=== PATIENT | female | born 1965 ===

== ENCOUNTER 2025-06-03 18:30 | Emergency (ER) | payer MEDICARE, MEDICAID, SELFPAY ==
--- NOTE | ~2025-06-03 | CT_ITS ---
CLINICAL HISTORY: Bilateral LQ Tenderness Pain CT abdomen and pelvis with contrast Comparison: None provided Findings: Minor atelectasis at the lung bases. Large hiatal hernia. Cholecystectomy. Pneumobilia. Subcapsular 11 mm cyst segment 6 liver. Abdominal solid organs are otherwise unremarkable. No urolithiasis. No bowel obstruction, pneumoperitoneum, or pneumatosis. Moderate stool. Mesenteric vessels patent. Normal appendix. Uterus and ovaries unremarkable. No ascites or hernia. The bones are intact. IMPRESSION: 1. Moderate stool without bowel obstruction. 2. Pneumobilia. Correlate with history of sphincterotomy. 3. Additional findings as above. This document has been electronically signed by: Joelle León MD on 06/04/2025 00:19:42
[2025-06-03 18:48] VITALS: BP 171/81; PULSE 81; RESP 16; TEMP 36.1; O2SAT 99; BMI 32.0
[2025-06-03 19:35] LABS: MANUAL DIFF FLAG NO
[2025-06-03 19:37] LABS: Hematocrit 35.1 % (37.0-47.0); Hemoglobin 11.5 g/dl (12.0-16.0); Imm Gran Abs Auto 0.01 X10*3/uL (0.00-0.03); Imm Gran Pct Auto 0.1 % (0.0-0.4); Lymphocytes Absolute Auto 2.0 X10*3/uL (1.2-4.9); Mean Corpuscular HGB Conc 32.8 g/dl (31.0-35.0); Mean Corpuscular Hemoglobin 29.0 pg (27.0-33.0); Mean Corpuscular Volume 88.6 fL (80.0-98.0); NRBC Abs Auto 0.000 X10*3/uL (0.0-0.012); NRBC Pct Auto 0.0 /100WBC (0.0-0.2); Platelet Count 231 X10*3/uL (160-400); Red Blood Count 3.96 X10*6/uL (4.20-5.50); White Blood Count 7.3 X10*3/uL (4.8-10.8)
[2025-06-03 19:39] LABS: Appearance Urine Clear; Glucose Urine UA Negative (Negative); PH 6.5 (5.0-9.0); Specific Gravity - Urine 1.025 (1.005-1.025); UMIC TRIGGER UACC YES
[2025-06-03 19:47] LABS: UACC Culture Trigger YES
[2025-06-03 19:57] LABS: Anion Gap 14 (12-20); Blood Urea Nitrogen 15 mg/dL (9-16); Calcium 8.5 mg/dL (8.4-10.2); Carbon Dioxide 21 mmol/L (22-29); Chloride 110 mmol/L (96-108); Creatinine Clr Calc Pharmacy 72.9; Estimated Glomerular Filt Rate > 60; Potassium 3.8 mmol/L (3.3-5.1); Sodium 141 mmol/L (135-145)
--- OUTSIDE RECORDS SUMMARY | 2025-06-03 19:58 | XMS_ITS ---
Author Organization [facility] Address [address] [place] [address] Care Team Providers Care Student Assistance Counselor Name Role Phone Domonique Briceño PA-C Primary Care Provider [phone] [id number] Program Status:Enrolled (Active) Start date:10/02/2022 Enrollment date:10/02/2022 Case Team Name Relationship Phone Lacey Peter LPN(Responsible Staff) [phone] Continued Care and Services Coordination
--- OUTSIDE RECORDS SUMMARY | 2025-06-03 19:58 | XMS_ITS | Encounter Summary ---
Author Organization [facility] Address [address] [place] [address] Care Team Providers Care [place] Name Role Phone Domonique Briceño PA-C Primary Care Provider [phone] Encounter Details Date Type Department Care Team (Late st Contact Info) Description 01/03/2024 Interim Notes Formerly [facility] [address] [place] [phone] Kelsie Guardado, Front Office [address], [place] [id number] Social History Tobacco Use Types Packs/Day Years Used Date Smoking Tobacco: Every Day Cigarettes Smokeless Tobacco: Never Alcohol Use Standard Drinks/Week Comments Not Currently 0 (1 standard drink = 0.6 oz pur e alcohol) occasionally Social Connections Answer Date Recorded Connectedness 2 11/03/2023 Financial Resource Strain Answer Date R ecorded Financial Resource Strain 2 2023 Stress Answer Date Recorded Stress 2 11/03/2023 Physical Activity Answer Date Recorded Physical Activity 0 04/08/2019 Food Insecurity Answer Date Recorded Food 2 11/03/2023 Transportation Needs Answer Date Record ed Transportation 1 11/03/2023 Housing Stability Answer Date Recorded Housing 2 11/03/2023 Safety and Environment Answer Date Marcelo rded Safety 0 04/08/2019 Utilities Answer Date Recorded Utilities 2 11/03/2023 Employment Answer Date Recorded Stress 0 11/03/2023 Comments No Sex and Gender Information Value Date Recorded Sex Assigned at Female 05/27/2017 10:07 AM PDT Legal Sex Female 11:36 AM PDT Gender Identity Female 05/27/2017 10:07 AM PDT Sexual Orientation Straight 05/27/2017 10 :07 AM PDT COVID-19 Exposure Response Date Recorded In the last 10 days, have yo u been in contact with someone who was confirmed or suspected to have Coronavirus/COVID-19? Unable to assess 01/05/2024 7:53 AM EDT documented as of this encounter Plan of Treatment Not on file documented as of this encounter Goals Goal Patient Goal Type Associated Problems Recent Progress Patient-Stated? Author Remain at or Below Target Blood Pressure General On track(10/02/19 23 2:39 PM PST) Lacey Lang LPN Note: 130/80 documented as of this encounter Visit Diagnoses Not on filedocumented in this encounter Additional Health Concerns Assessment Noted Time PHQ-9 Depression Total Score: 24 024 1:00 PM PDT documented as of this encounter Care Teams [place] Relationship Specialty Start Date End Date Domonique Briceño PA-C [address] [place] [phone] PCP - General Internal Medicine 09/18/24 documented as of this encounter
--- OUTSIDE RECORDS SUMMARY | 2025-06-03 19:58 | XMS_ITS | Clinical Summary ---
Author Organization [facility] Address [address] [place] [address] Care Team Providers Care Machine Designer Name Role Phone Domonique Briceño PA-C Primary Care Provider [phone] Source Comments PLEASE NOTE, if this patient is a minor, it may be UNLAWFUL to discuss sensitive information that is contained in these records (such as FAMILY PLANNING, MENTAL HEALTH or SUBSTANCE ABUSE) with the minor patient's parent or other person without the patient's specific authorization.[facility] Allergies Active Allergy Reactions Criticality Noted Date Comments Aspirin Hives 04/18/2013 Gi upset Penicillins Hives,Rash High 03/14/2013 Medications colchicine 0.6 mg tabletIndicatio ns:Coronary artery disease involving federated indians of gr[place] coronary artery of federated indians [place] heart without angina pectoris TAKE 1 TABLET BY MOUTH EVERY 12 HRS Active COLACE 100 mg capsuleIndicati ons:BMI 38.0-38.9,adult Take 100 mg by mouth 4 Active hydrOXYzine HCL (ATARAX) 50 mg tabletIndicatio ns:Coronary artery disease involving federated indians [place] coronary artery of federated ind[place] heart without angina pectoris Take 50 mg by mouth 4 Active sucralfate (CARAFATE) 1 gram tabletIndicatio ns:Dyspepsia Take 1 Tablet by mouth 4 Active lurasidone (LATUDA) 20 mg tabletIndicatio ns:Coronary artery disease involving federated indians of gr[place] coronary artery of federated indians [place] heart without angina pectoris Take 1 Tablet by mouth once daily 4 Active semaglutide, weight loss, (WEGOVY) 1 mg/0.5 mL pnijIndications :Prediabetes,BM I 37.0-37.9, adult,Coronary artery disease involving federated indians of gr[place] coronary artery of fed[place] ind[place] heart without angina pectoris,Morbid obesity with BMI of 40.0-44.9, adult Inject 1 mg into the skin once a week 6 mL 3 5 Active ascorbic acid, vitamin C, (VITAMIN C) 250 mg tabletIndicatio ns:Iron deficiency anemia, unspecified iron deficiency anemia type Take 1 Tablet by mouth once daily 90 Tablet 3 5 Active aspirin [address] tabletIndicatio ns:Coronary artery disease involving federated indians of gr[place] coronary artery of federated indians of gr[place] heart without angina pectoris Take 1 Tablet by mouth once daily 90 Tablet 3 5 Active atorvastatin (LIPITOR) 20 mg tabletIndicatio ns:Coronary artery disease involving federated indians [place] coronary artery of fed[place] heart without angina pectoris Take 1 Tablet by mouth nightly at bedtime 90 Tablet 3 5 Active carvediloL (COREG) 6.25 mg tabletIndicatio ns:Coronary artery disease involving federated indians of gr[place] coronary artery of federated indians [place] gr[place] heart without angina pectoris Take 1 Tablet by mouth 2 (two) times daily 180 Tablet 3 5 Active ferrous sulfate 325 mg (65 mg iron) tabletIndicatio ns:Iron deficiency anemia, unspecified iron deficiency anemia type Take 1 Tablet by mouth once daily with breakfast 90 Tablet 3 5 Active furosemide (LASIX) 20 mg tabletIndicatio ns:Coronary artery disease involving federated indians [place] gr[place] coronary artery of federated ind[place] heart without angina pectoris Take 1 Tablet by mouth once daily 90 Tablet 2 5 Active doxycycline (VIBRA-TABS) 100 mg tablet Take 1 Tablet by mouth 2 (two) times daily for 14 days. 28 Tablet 5 06/06/20 25 Active doxycycline (VIBRA-TABS) 100 mg tablet Take 1 Tablet by mouth 2 (two) times daily for 14 days. 28 Tablet 5 05/23/20 25 Discontinu ed(Reorder (E-Cancel Not Sent)) Active Problems Problem Noted Date Diagnosed Date Acute Lyme disease 07/202408/21/2024 Coronary artery disease invo lving federated indians of gr[place] coronary artery of federated indians [place] heart without angina pectoris 08/04/2024 Prediabetes 02/21/2024 BMI 37.0-37.9, adult 02/21/2024 Moderate episode of recurrent major depressive d isorder 09/16/2023 Bereavement 09/16/2023 Severe tramadol use disorder 08/11/2023 Fatty liver 11/05/2018 Overview (11/10/2018): 10/28/18 - US Abdomen: Limited d/t body habitus. Diffuse coarsening of the hepatic echotexture c/w fatty infiltration and/or hepatocellular disease. Hiatal hernia 05/18/2018 Overview (04/22/2021): 02/09/18 - Seen at [facility] for R sided abd pain. CT Abdomen/Pelvis normal with exception of small hiatal hernia 05/05/2019 EGD Hiatal hernia. Esophageal Biopsy showed: Active esophagitis with moderate neutrophilic infiltrate. Negative for carlin. (RS 04/21/2021) DJD (degenerative joint dise ase) of cervical spine - xrays 10/27/17 11/13/2017 Essential hypertension, benign 12/07/2016 Marijuana dependence 12/07/2016 Abnormal mammogram of both breasts 05/15/16 - rep eat 11/12/16 10/17/2014 Overview (05/29/2016): Abnormal mammo 05/15/16 bilateral at [facility]. Had US both breasts 05/19/16 = simple cyst within 10:00 right, probably benign cluster microcysts left breast 3-4:00- 6 month f/u mammo and US recommended. 06/15/13: birads ) more imagine required notes from [facility] received 10/17/14 06/23/13: bilayt u/s done birads 2 benign Madelung's deformity, left wrist 08/02/2014 Overview (08/02/2014): F/u [facility]. Vitamin D deficiency 09/19/2010 Asthma, moderate persistent 08/28/2008 Chronic low back pain 06/08/2008 Overview (10/13/2018): Pain management eval 09/19/17 - L5-S1 DDD [facility] eval 04/10/2014 by Rick Pardo PA-C, referred for PT for lumbar stabilization 02/21/18 - [facility] Ed for LBP. Xray L-spine: normal. [place]: Tramadol #14 Other specified anxiety disorder 06/08/2008 Overview (04/30/2016): Psych at [facility] Insomnia 06/08/2008 Overview (04/18/2013): PSYCH F/U DR. CHARLES. Bilateral knee pain/OA Overview (09/12/2018): Seen [facility] Dr. Kaye 11/12/15 - severe PF arthrosis, slight spurs medial side both knees without brett collapse. Had visco supplementation 02/10/18 - Rheum eval: Pt most likely with OA and diffuse pain syndrome. Started on PLAQUENIL. F/U 4-6 wks 03/29/18 - Rheum F/U Cunningham, DO: Pt with diffuse joint pain. Has tried cortisone injections, visco supplementation knees at [facility], Ibuprofen, Tramadol, Voltaren gel, Restarted back on Plaquenil (as only took it for 1 wk then stopped). Ophthalmology referral ordered for Plaquenil monitoring. F/U 6-8 wks. Was taken off Plaquenil shortly after. GERD (gastroesophageal reflux disease) Overview (02/09/2019): 12/29/18 - Seen by [facility] for pigastric abdominal pain, nausea and dysphagia. Plan: h. Pylori testing = negative. EGD is scheduled on 05/05/19 Morbid obesity with BMI of 40.0-44.9, adult Tobacco abuse disorder Resolved Problems Problem Noted Date Diagnosed Date Resolved Date Anxiety 12/25/2021 01/05/2023 Esophagitis 05/13/2019 01/05/2023 Renal cyst, left 04/16/2017 04/21/2017 Overview (05/05/2017): Alda HOYT is a 52 year old female with probably tiny cyst lower pole left kidney via MRI lumbar spine 2011 at [facility]. Neg renal US 04/21/17 at [facility] Left ankle pain 04/16/2017 01/05/2023 Overview (07/30/2018): MRI left ankle 03/31/17 = prob tear ATFL 07/22/18 seen by [facility] for for b/l ankle pain L>R. Plan: MRI both ankles. Plan: PT, prednisone taper, Flexor tenosynovitis of finger (right pinkie) 11/06/19 17 01/05/2023 Calculus of gallbladder with out cholecystitis without obstruction - s/p choly 12/25/16 11/05/2016 09/12/2018 Overview (11/05/2016): US abdomen done 06/21/16 at [facility] = single mobile gallstone without cholecystitis, cholesterol polyp vs focal adenomyomatosis Pelvic pain in female 10/10/20142022 Overview (03/28/2019): Wm BV + Sending GC/CT they are pending. U/S orderd, r/t 6 weeks to review u/s sched for november 07 Gc/ct neg 10/11/14 Notes from [facility] received. Pelvic u/s done 10/10/13: Normal pelvic u/s no mass notes in Uterus, with normal endometrial stripe. Right ovary Normal. Left not seen. [facility] 11/07/14: U/S done 13mm leiomyoma on ant fundus of uterus. Normal uterine size and ovarian size. Endometrium with normal thickness at 4mm this was reviewed with pt in office today 11/14/14 03/02/19 - US pelvis ([facility]): normal Bilateral hand pain 01/06/20 Immunizations Immunization Administration Dates Next Due Flu, Preservative Free 05/08/2019,2018,04/16/2017,04/30,05/17/2015 INFLUENZA, SEASONAL, INJECTABLE 07/05/2014 PNEUMOCOCCAL POLYSACCHARIDE PPV23 (Pneumovax 23) 09/12/2018 TDAP 09/12/2018 Family History Medical History Relation Name Comments Diabetes Father Hypertension Father Relation Name Status Comments Father Alive Mother (Age 62) HIV/AIDS Social History Tobacco Use Types Packs/Day Years Used Date Smoking Tobacco: Former Cigarettes 1 49.3 S tarted: 02/05/1976 Passive Smoke Exposure: Never Smokeless Tobacco: Never Tobacco Cessation:Counseling Given: Not Answered Alcohol Use Standard Drinks/Week Comments Not Currently [...] Orientation Straight 05/27/2017 10 :07 AM PDT Last Filed Vital Signs Vital Sign Reading Time Taken Comments Blood Pressure 116/84 05/26/2024 10:21 AM EDT Pulse 81 08/04/2024 9:43 AM EST Temperature 36.7 C (98 F) 08/04/2024 9:43 AM EST Respiratory Rate 16 08/04/2024 9:43 AM EST Oxygen Saturation 99% 08/04/2024 9:43 AM EST Inhaled Oxygen Concentration - - Weight 92.1 kg (203 lb) 11/27/2024 9:17 AM EDT Height 157.5 cm (5' 2 ) 11/27/2024 9:17 AM EDT Body Mass Index 37.13 11/27/2024 9:17 AM EDT Plan of Treatment Health Maintenance Due Date Last Done Comments HPV Screening (self-collect) [address] Colonography 2011 Colonoscopy 2011 Colorectal Cancer Screening 2011 FIT/gFOBT 2011 Fecal DNA 2011 Flexible Sigmoidoscopy 2011 Imm-Zoster, Recombinant (1 of 2) 02/05/2016 Imm-Pneumococcal 50+ (2 of 2 - PCV) 09/12/2019 09/12/2018 STI Counseling 08/22/2020 08/22/2019 Medicare Annual Wellness Visit 12/24/2023 12/23/2022 Anxiety Screening 01/02/2025 01/03/2024 Breast Cancer Screening (Mammogram) 01/16/2025 07/18/2024, 10/26/2023, 04/08/2023, Additional history exists Depression Monitoring 02/26/2025 11/27/2024 , 05/26/2024, 01/03/2024, Additional history exists [id number] ( season) 2025 Imm-Influenza (#1) 2025 05/08/2019, 0 09/12/2018, 04/16/2017, Additional history exists Tobacco Cessation Counseling (#1) 09/18/2025 021 Tobacco Screening 09/18/2025 09/18/2024, 04/02/2021 Diabetes Screening 11/28/2025 11/28/2024, 0 11/28/2024, 08/04/2024, Additional history exists Lipid Screening 11/28/2025 11/28/2024, 07/0 04/2024, 11/14/2020, Additional history exists Pap Smear 03/23/2026 03/23/2023, 06/0 10/2020, 09/09/2017, Additional history exists Syphilis Screening 05/23/2026 05/23/2025, 0 08/22/2019, 04/10/2019 Cervical Cancer Screening 03/23/2028 Pap + HPV 03/23/2028 03/23/2023, 08/17, 05/21/2015, Additional history exists Imm-DTaP/Tdap/Td (2 - Td or Tdap) 09/12/2028 019 HIV Screening Completed 02/01/2024, 02/0 10/2022, 04/10/2019, Additional history exists Hepatitis C Screening Completed 02/01/2024 , 09/18/2022, 04/10/2019 Alcohol and Drug Screen Completed 11/28/19, 01/03/2024, 11/03/2023, Additional history exists Cervical Ablation/Cold-Knife Conization Discontinued Cervical Cryotherapy Discontinued Colposcopy Discontinued Excision/Leep Discontinued HPV Genotyping Discontinued Imm-Hepatitis B Discontinued Vaginal Pap Discontinued Vulvoscopy Discontinued Goals Goal Patient Goal Type Associated Problems Recent Progress Patient-Stated? Author Remain at or Below Target Blood Pressure General On track(10/02/19 23 2:39 PM PST) Lacey Lang LPN Note: 130/80 Procedures Procedure Name Priority Date/Time Associated Diagnosis Comments SYPHILIS ANTIBODY CASCADING REFLEX Routine 05/23/2025 2:46 PM EDT Exposure to syphilis HEMOGLOBIN GLYCOSYLATED A1C Routine 11/28/2024 1:58 PM EDT Prediabetes BMI 37.0-37.9, adult Coronary artery disease involving federated indians of gr[place] coronary artery of federated indians [place] heart without angina pectoris Morbid obesity with BMI of 40.0-44.9, adult ([facility]) Iron deficiency anemia, unspecified iron deficiency anemia type Mild vitamin D deficiency LIPID PANEL Routine 11/28/2024 1:58 PM EDT Prediabetes BMI 37.0-37.9, adult Coronary artery disease involving federated ind[place] coronary artery of fed[place] heart without angina pectoris Morbid obesity with BMI of 40.0-44.9, adult ([facility]) Iron deficiency anemia, unspecified iron deficiency anemia type Mild vitamin D deficiency HIV 1/2 AG & AB W/RFLX (4TH GEN) Routine 02/01/2024 10:29 AM EDT Opioid use disorder, mild, abuse ([facility]) HEPATITIS C AB W/RFLX HCV RNA, QT, RT PCR Routine 02/01/2024 10:29 AM EDT Opioid use disorder, mild, abuse ([facility]) REFERRAL FOR DIAGNOSTIC MAMMOGRAM Routine 10/26/2023 3:00 AM EDT Abnormal mammogram THIN PREP PAP + HPV RNA E6/E7 (Q) Routine 03/23/2023 1:27 PM EDT Well woman exam with routine gynecological exam from Last 3 Months or Most Recently Relevant to Health Maintenance Results * SYPHILIS ANTIBODY CASCADING REFLEX Routine (05/23/2025 2:46 PM EDT) T. PALLIDUM AB, EIA NEGATIVE NEGATIVE 05/24/2025 7:01 PM EDT [email or web address] Blood Blood / Unknown 05/23/2025 2 :46 PM EDT 05/24/2025 5:33 AM EDT Narrative Done In :60 Seconds - 05/24/2025 7:04 PM EDT . No antibodies to T. pallidum (the agent causing syphilis) were detected in the specimen. This result, however, does not exclude very recent T. pallidum infection; testing of a second specimen, collected 2-4 weeks after this specimen, is recommended if the index of suspicion for recent infection is high. . us Domonique Briceño PA-C LAB - BLOOD DRAW Final Resul t Performing Organization Address [facility] de Phone Number [facility] [address] [address], [employer] [address] [address] * HEMOGLOBIN GLYCOSYLATED A1C (11/28/2024 1:58 PM EDT) HEMOGLOBIN A1C 5.3 <5.7 % [email or web address] Comment: For the purpose of screening for the presence of diabetes: <5.7% Consistent with the absence of diabetes 5.7-6.4% Consistent with increased risk for diabetes (prediabetes) > or =6.5% Consistent with diabetes This assay result is consistent with a decreased risk of diabetes. Currently, no consensus exists regarding use of hemoglobin A1c for diagnosis of diabetes in children. According to [place] Diabetes Association (ADA) guidelines, hemoglobin A1c <7.0% represents optimal control in non- diabetic patients. Different metrics may apply to specific patient populations. Standards of Medical Care in Diabetes(ADA). Blood Blood / Unknown 11/28/2024 1 :58 PM EDT 11/28/2024 1:59 PM EDT Narrative [facility] - 11/29/2024 7:14 PM EDT FASTING:NO Domonique Briceño PA-C LAB - BLOOD DRAW Edited Resu lt - Final Performing Organization Address [facility]/[employer] de Phone Number [facility] [address] [address], [employer] [address] [address] * (ABNORMAL) LIPID PANEL (11/28/2024 1:58 PM EDT) [facility] CHOLESTEROL, TOTAL 175 <200 mg/dL [employer] HDL CHOLESTEROL 53 > OR = 50 mg/dL [employer] TRIGLYCERIDES 97 <150 mg/dL [facility] LDL-CHOLESTEROL 103(H) 99 mg/dL (calc) [facility] Comment: Reference range: <100 Desirable range <100 mg/dL for primary prevention; <70 mg/dL for patients with CHD or diabetic patients with > or = 2 CHD risk factors. LDL-C is now calculated using the Bean calculation, which is a validated novel method providing better accuracy than the Friedewald equation in the estimation of LDL-C. Jose YUEN et al. MAYELA. 2013;310(19): 3072-1556 (http://education.Optimizely/faq/CDI861) CHOL/HDLC RATIO 3.3 <5.0 (calc) [facility] NON-HDL CHOLESTEROL 122 <130 mg/dL (calc) [employer] [facility] Comment: For patients with diabetes plus 1 major ASCVD risk factor, treating to a non-HDL-C goal of <100 mg/dL (LDL-C of <70 mg/dL) is considered a therapeutic option. Blood Blood / Unknown 11/28/2024 1 :58 PM EDT 11/28/2024 1:59 PM EDT Narrative [facility] - 11/29/2024 7:14 PM EDT FASTING:NO us Domonique Briceño PA-C LAB - BLOOD DRAW Final Resul t [facility] [address] [address], [employer] [address] [address] * HEPATITIS C AB W/RFLX HCV RNA, QT, RT PCR (02/01/2024 10:29 AM EDT) [facility] HEPATITIS C ANTIBODY NON-REACT MORALES NON-REACT MORALES [email or web address] Comment: HCV antibody was non-reactive. There is no laboratory evidence of HCV infection. In most cases, no further action is required. However, if recent HCV exposure is suspected, a test for HCV RNA (test code 22186) is suggested. For additional information please refer to http://Teevox.Adype/faq/SGQ03q6 (This link is being provided for informational/ educational purposes only.) Blood Blood / Unknown 02/01/2024 1 0:29 AM EDT 02/01/2024 10:29 AM EDT Narrative [facility] - 2024 5:16 PM EDT FASTING:NO Aimee Castañeda PA-C LAB - BLOOD DRAW Edited Resu lt - Final Done In :[address] [place] [id number], [employer] [address] [address] * HIV 1/2 AG & AB W/RFLX (4TH GEN) (02/01/2024 10:29 AM EDT) HIV AG/AB, 4TH GEN NON-REAC TIVE NON-REAC TIVE [email or web address] Comment: HIV-1 antigen and HIV-1/HIV-2 antibodies were not detected. There is no laboratory evidence of HIV infection. PLEASE NOTE: This information has been disclosed to you from records whose confidentiality may be protected by state law. If your state requires such protection, then the state law prohibits you from making any further disclosure of the information without the specific written consent of the person to whom it pertains, or as otherwise permitted by law. A general authorization for the release of medical or other information is NOT sufficient for this purpose. For additional information please refer to http://education.WP Fail-Safe.Tile/faq/VFZ238 (This link is being provided for informational/ educational purposes only.) The performance of this assay has not been clinically validated in patients less than 2 years old. Blood Blood / Unknown 02/01/2024 1 0:29 AM EDT 02/01/2024 10:29 AM EDT Narrative Done In :60 Seconds - 2024 5:16 PM EDT FASTING:NO Aimee Castañeda PA-C LAB - BLOOD DRAW Final Resul t Done In :[address] Seconds [address] [address], [email or web address] [address] [place] [phone] * REFERRAL FOR DIAGNOSTIC MAMMOGRAM (10/26/2023 3:00 AM EDT) 10/26/2023 3:00 AM EDT Aimee Castañeda PA-C IMG RFL MAMMO Edited Resul t - Final * THIN PREP PAP + HPV RNA E6/E7 (Q) (03/23/2023 1:27 PM EDT) CLINICAL INFORMATION See Note [email or web address] Comment:POSTMENOPAUSAL~MARLYN L EXAM LMP See Note [email or web address] Comment:[id number] PREV. PAP See Note [email or web address] Comment:NONE GIVEN PREV. BX See Note [email or web address] Comment:NONE GIVEN SOURCE See Note [email or web address] Comment:Cervix STATEMENT OF ADEQUACY See Note [email or web address] Comment: Satisfactory for evaluation. Endocervical/transformation zone component present. INTERPRETATION/RESU LT See Note [email or web address] Comment: Cytology Results: Negative for intraepithelial lesion or malignancy. 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 Cervical sources are required for HPV testing. If a vaginal source from a patient who has had a total hysterectomy with removal of cervix was submitted, please contact the testing laboratory for alternative testing options. For additional information, please refer to http://education.WP Fail-Safe.Tile/faq/CJP750x3 (This link if provided for information/ educational purposes only.) CYTOLOGY Cervix uteri structure / Unknown 03/23/2023 1:27 PM EDT 03/24/2023 12:50 AM EDT Narrative [facility] - 03/25/2023 12:45 PM EDT EXPLANATORY NOTE: The Pap is a screening test for cervical cancer. It is not a diagnostic test and is subject to false negative and false positive results. It is most reliable when a satisfactory sample, regularly obtained, is submitted with relevant clinical findings and history, and when the Pap result is evaluated along with historic and current clinical information. [facility] - PATHOLOGY AND CYTOLOGY A MBULATORY Final Result [employer] [address] [address], [employer] [address] [address] from Last 3 Months or Most Recently Relevant to Health Maintenance Insurance [place]ARE - [place] , [facility] Care Teams Machine Designer Relationship Specialty Start Date End Date Domonique Briceño PA-C [address] [place] [phone] PCP - General Internal Medicine 09/18/24
--- OUTSIDE RECORDS SUMMARY | 2025-06-03 19:58 | XMS_ITS | Clinical Summary ---
Author Organization [facility] Address [address] [place] [address] Phone Care Team Providers Care Assistant Merchandiser Name Role Phone Aimee Castañeda Primary Care Provider Allergies Active Allergy Reactions Criticality Noted Date Comments Aspirin 06/06/2013 Penicillins 06/06/2013 Medications omeprazole (PriLOSEC) [address] capsule Take 1 Cap by mouth 2 times daily. 08/14/2014 Active meloxicam (MOBIC) 7.5 mg tablet TOME ARMANDO TABLETA POR VIA ORAL TODOS [place] 07/24/2014 Active celecoxib (CeleBREX) 200 mg capsule Take 1 Cap by mouth 2 times daily. 02/07/2014 Active oxyCODONE-aceta minophen (PERCOCET) 5-325 mg per tablet Take 1 tablet by mouth at bedtime as needed for Pain. 12/29/2013 Active clonazePAM (KlonoPIN) 0.5 mg tablet Take 0.5 mg by mouth 2 times daily as needed. Active cholecalciferol (VITAMIN D-3) 50 mcg (2,000 unit) capsule Take 1 Tab by mouth daily. Active venlafaxine XR (EFFEXOR-XR) 150 mg 24 hr capsule Take 150 mg by mouth daily. In addition to the 75 mg tab daily Active venlafaxine XR (EFFEXOR-XR) 75 mg 24 hr capsule Take 75 mg by mouth daily. In addition to the 150 mg daily Active traZODone (DESYREL) 50 mg tablet Take 50 mg by mouth 2 times daily. Prn Active triamcinolone (KENALOG) 0.025 % ointment Apply 3-4x/day to affected area 15 g 1 01/01/2025 Active albuterol sulfate 90 mcg/actuation aerosol powdr breath activated Inhale by mouth. 09/16/2017 Active ascorbic acid (VITAMIN C) 250 mg tablet Take 1 tablet (250 mg total) by mouth daily. 08/04/2024 Active aspirin 81 mg EC tablet Take 1 tablet (81 mg total) by mouth daily. 07/08/2024 Active atorvastatin (LIPITOR) 20 mg tablet Take 1 tablet (20 mg total) by mouth. 11/27/2024 Active buprenorphine-n aloxone (SUBOXONE) 4-1 mg per SL film PLACE 1 STRIP UNDER THE TONGUE 2 (TWO) TIMES DAILY 03/21/2024 Active carvediloL (COREG) 6.25 mg tablet Take 1 tablet (6.25 mg total) by mouth 2 times daily. 11/27/2024 Active clopidogreL (PLAVIX) 75 mg tablet Take 1 tablet (75 mg total) by mouth 1 (one) time each day. 07/03/2024 Active colchicine (COLCRYS) 0.6 mg tablet TAKE 1 TABLET BY MOUTH EVERY 12 HRS Active Colace 100 mg capsule Take 1 capsule (100 mg total) by mouth. 07/25/2024 Active doxycycline hyclate (VIBRA-TABS) 100 mg tablet TAKE 1 TABLET BY MOUTH 2 TIMES DAILY FOR 21 DAYS. 08/21/2024 Active DULoxetine (CYMBALTA) [address] capsule Take 3 capsules (60 mg total) by mouth. 12/29/2018 Active estradioL (ESTRACE) 0.01 % (0.1 mg/gram) vaginal cream APPLY 1GM DAILY FOR THE FIRST WK THEN TWICE WKLY 04/20/2024 Active estradioL (ESTRACE) 2 mg tablet Take 1 tablet (2 mg total) by mouth 1 (one) time each day. 04/20/2024 Active ferrous sulfate 325 mg (65 mg elemental iron) tablet Take 1 tablet (325 mg total) by mouth 1 (one) time each day with breakfast. 07/25/2024 Active furosemide (LASIX) 20 mg tablet Take 1 tablet (20 mg total) by mouth daily. 07/04/2024 Active hydroCHLOROthia zide (MICROZIDE) 12.5 mg capsule Take 1 capsule (12.5 mg total) by mouth. 07/04/2024 Active hydrOXYzine HCL (ATARAX) 50 mg tablet Take 1 tablet (50 mg total) by mouth. 05/31/2024 Active lisinopriL (PRINIVIL,ZESTR IL) 10 mg tablet Take 1 tablet (10 mg total) by mouth 1 (one) time each day. Active lurasidone (LATUDA) 20 mg tablet Take 1 tablet (20 mg total) by mouth daily. 05/31/2024 Active sucralfate (CARAFATE) 1 gram tablet Take 1 tablet (1 g total) by mouth. 05/03/2024 Active valsartan (DIOVAN) 40 mg tablet Take 1 tablet (40 mg total) by mouth 2 (two) times a day. 07/03/2024 Active valsartan (DIOVAN) 80 mg tablet 12/27/2024 Active levoFLOXacin (LEVAQUIN) 750 mg tablet Take 1 tablet (750 mg total) by mouth 1 (one) time each day. for 3 days 07/25/2024 Active Wegovy 1 mg/0.5 mL injection pen Inject 1 mg under the skin. 11/27/2024 Active Active Problems Problem Noted Date Diagnosed Date Bilateral knee pain 01/09/2025 Overview (01/09/2025): Seen JESUS Kaye 11/12/15 - severe PF arthrosis, slight spurs medial side both knees without brett collapse. Had visco supplementation 02/10/18 - Rheum eval: Pt most likely with OA and diffuse pain syndrome. Started on PLAQUENIL. F/U 4-6 wks 03/29/18 - Rheum F/U Cunningham, DO: Pt with diffuse joint pain. Has tried cortisone injections, visco supplementation knees at [facility], Ibuprofen, Tramadol, Voltaren gel, Restarted back on Plaquenil (as only took it for 1 wk then stopped). Ophthalmology referral ordered for Plaquenil monitoring. F/U 6-8 wks. Was taken off Plaquenil shortly after. GERD (gastroesophageal reflux disease) Overview (01/09/2025): 12/29/18 - Seen by [facility] for pigastric abdominal pain, nausea and dysphagia. Plan: h. Pylori testing = negative. EGD is scheduled on 05/05/19 GERD without esophagitis 01/09/2025 HLD (hyperlipidemia) 01/09/2025 HTN (hypertension) 01/09/2025 Nonischemic cardiomyopathy ([facility] V24, [facility] V28) 01/09/2025 Pericarditis 01/09/2025 Severe obesity (BMI 35.0-39. 9) with comorbidity ([facility] V24, [facility] V28) 01/09/2025 Anxiety 10/12/2024 Overview (10/12/2024): DX:Anxiety Asthma 10/12/2024 Overview (10/12/2024): DX:Asthma Degenerative arthritis of lumbar spine Joint pain 10/12/2024 Major depression 10/12/2024 Acute Lyme disease 08/21/2024 Coronary artery disease invo lving tuscarora coronary artery of t[place]carora heart without angina pectoris 07/05/2024 Ischemic cardiomyopathy 07/05/2024 Prediabetes 02/21/2024 Moderate episode of recurren t major depressive disorder ([facility] V24, [facility] V28) 09/16/2023 Severe tramadol use disorder ([facility] V24, [facility] V28) 08/11/2023 Fatty liver 11/05/2018 Overview (01/09/2025): 10/28/18 - US Abdomen: Limited d/t body habitus. Diffuse coarsening of the hepatic echotexture c/w fatty infiltration and/or hepatocellular disease. Essential hypertension, benign 12/07/2016 Marijuana dependence ([facility] V24, [facility] V28) 12/07/2016 Abnormal mammogram of both breasts 10/17/2014 Overview (01/09/2025): Abnormal mammo 05/15/16 bilateral at [facility]. Had US both breasts 05/19/16 = simple cyst within 10:00 right, probably benign cluster microcysts left breast 3-4:00- 6 month f/u mammo and US recommended. 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 Bipolar disorder ([facility] V24, [facility] V28) 11/2013 Vitamin D deficiency 09/19/2010 Asthma, moderate persistent 08/28/2008 Chronic low back pain 06/08/2008 Overview (01/09/2025): Pain management eval 09/19/17 - L5-S1 DDD [facility] eval 04/10/2014 by Rick Pardo PA-C, referred for PT for lumbar stabilization 02/21/18 - [facility] Ed for LBP. Xray L-spine: normal. [place]: Tramadol #14 Insomnia 06/08/2008 Overview (01/09/2025): PSYCH F/U DR. CHARLES. Immunizations Immunization Administration Dates Next Due Influenza Quadrivalent, 0.5m l, preservative free (Fluarix; FluLaval; Fluzone) ages 6mo and older (Afluria) 3yo and older 05/08/2019,09/12/2018,04/16/2017,04/30,05/17/2015 Influenza trivalent, 0.5mL, preservative free (Fluarix; FluLaval; Fluzone) ages 6mo and older (Afluria) 3 years and older 06/06/2013 Influenza trivalent, with pr eservative (Fluzone; Afluria) 6mo and older 07/05/2014 Pneumococcal polysaccharide 23 valent (Pneumovax 23) 2yo and older 09/12/2018 Tdap Tetanus diptheria acell ular pertussis (Boostrix; Adacel) 7yo and older 09/12/2018 Surgical History Surgery Date Site/Laterality Comments COLONOSCOPY 06/18/2016 PROCEDURE: HISTORICAL COLONOSCOPY; COMMENT: diverticulosis ESOPHAGOGASTRODUODENOSCOPY 06/18/2016 PROCEDURE: KS ESOPHAGOGASTRODUODENOSCOPY TRANSORAL DIAGNOSTIC; COMMENT: nonerosive gastritis OTHER SURGICAL HISTORY 2009 PROCEDURE: HISTORICAL EAR SURGERY; COMMENT: postauricular/ear canal incision/middle ear exploration (Dr. Tatum) FOOT SURGERY 2014 Left PROCEDURE: HISTORICAL FOOT SURGERY; COMMENT: planta fasciectomy (Dr. Hussein) OTHER SURGICAL HISTORY 2017 Left PROCEDURE: KS TNOLS FLXR/XTNSR TENDON FOREARM&/WRIST 1 EA; COMMENT: De Quervain release ([facility]) CHOLECYSTECTOMY PROCEDURE: KS LAPAROSCOPY SURG CHOLECYSTECTOMY FOOT SURGERY 2013 Right PROCEDURE: HISTORICAL FOOT SURGERY; COMMENT: plantar fasciectomy (Dr. 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; COMMENT: Left wrist DJD (degenerative joint dise ase), lumbar 02/16/2018 DX:DJD (degenerative joint d isease), lumbar Vitamin D deficiency 02/16/2018 DX:Vitamin D deficiency Chronic low back pain 02/16/2018 DX:Chronic low back pain DJD (degenerative joint dise ase) of knee 02/16/2018 DX:DJD (degenerative joint d isease) of knee Family History Medical History Relation Name Comments Coronary artery disease Father Diabetes Father CAD, HTN Other: HIV/AIDS Mother Bladder Cancer Sister Relation Name Status Comments Father Alive Mother Sister Social History Tobacco Use Types Packs/Day Years Used Date Smoking Tobacco: Every Day Cigarettes Smokeless Tobacco: Never Alcohol Use Standard Drinks/Week Comments Not Currently 0 (1 standard drink = 0.6 oz pur e alcohol) Comments No Sex and Gender Information Value Date Recorded Sex Assigned at Not on file Legal Sex Female 3:03 PM EST Gender Identity Not on file Sexual Orientation Not on file Obstetrics History * This document contains information received from the source organization and may not represent a complete record from that organization. Para Term AB IAB SAB Ectopic Multiple Livin g Live Births 8 7 7 1 4 4 Date Outcome GA Total Labor Labor/2nd/3rd Weight Sex Type Anes PTL Anabel A1 A5 Name Clin Term Vag-S pont Living Term Vag-S pont Living Term Vag-S pont Living Term Vag-S pont Living Term Term Term Term Last Filed Vital Signs Vital Sign Reading Time Taken Comments Blood Pressure 152/100 10/13/2024 8:45 AM EST Pulse 85 10/13/2024 8:45 AM EST Temperature - - Respiratory Rate - - Oxygen Saturation - - Inhaled Oxygen Concentration - - Weight 97.5 kg (215 lb) 10/13/2024 8:45 AM EST Height 157.5 cm (5' 2 ) 07/18/2024 10:46 AM EST Body Mass Index 39.32 07/18/2024 10:46 AM EST Plan of Treatment Health Maintenance Due Date Last Done Comments Colorectal Cancer Screening: Colonoscopy 1966 Hepatitis A Vaccines (1 of 2 - Risk 2-dose series) 1985 Hepatitis B Vaccines (1 of 3 - 19+ 3-dose series) 1985 RSV Immunization Adult Patients (1 - Risk 50-74 years 1-dose series) 02/05/2016 Zoster Vaccines (1 of 2) 02/05/2016 Pneumococcal Vaccine: 50+ Years (2 of 2 - PCV) 09/12/2019 09/12/2018 Lung Cancer Screening (Low Dose CT) 07/14/2022 Social Influencers of Health Screening 07/14/2022 Medicare Annual Wellness Visit 12/24/2023 12/23/2022 Cervical Cancer Screening: Pap Smear 01/17/2024 01/16/2021, 10/09/2013, 10/09/2013 Depression Screening 08/16/2024 COVID-19 Vaccine ( season) 2025 Influenza Vaccine (#1) 2025 9, 09/12/2018, 04/16/2017, Additional history exists Hypertension/CHF/CAD Annual BMP Blood Test 08/04/2025 08/04/2024, 02/01/2024, 01/07/2024, Additional history exists Breast Cancer Screening 07/18/2026 07/18/20, 04/08/2023, 04/03/2022, Additional history exists DTaP,Tdap,and Td Vaccines (2 - Td or Tdap) 09/12/2028 09/12/2018 Cholesterol Screening (Lipid Panel) 02/21/2029 02/22/2024, 02/22/2024, 10/09/2013 HIV Screening Completed 10/09/2013 Hepatitis C Screening Completed 02/01/2024 HIB Vaccines Aged Out No longer eligi ble based on patient's age to complete this topic HPV Vaccines Aged Out No longer eligi ble based on patient's age to complete this topic IPV Vaccines Aged Out No longer eligi ble based on patient's age to complete this topic MMR Vaccines Aged Out No longer eligi ble based on patient's age to complete this topic Meningococcal ACWY Vaccine Aged Out N o longer eligible based on patient's age to complete this topic Meningococcal B Vaccine Aged Out No l onger eligible based on patient's age to complete this topic RSV Immunization Patients Under 20 months Aged Out No longer eligible based on patient's age to complete this topic Varicella Vaccines Aged Out No longer eligible based on patient's age to complete this topic Procedures Procedure Name Priority Date/Time Associated Diagnosis Comments MG MAMMO DIGITAL SCREENING W JOSUE BILAT Routine 07/18/2024 10:55 AM EST Encounter for screening mammogram for breast cancer PAP SMEAR Routine 01/16/2021 HIV SCREENING Routine 10/09/2013 ANNUAL BMP BLOOD TEST Routine 10/09/2013 LIPID PANEL Routine 10/09/2013 from Last 3 Months or Most Recently Relevant to Health Maintenance Results * MG Mammo Digital Screening w Josue bilat (07/18/2024 10:55 AM EST) Anatomical Region Laterality Modality Breast Bilateral Mammography 07/18/2024 11:0 5 AM EST Impressions 07/18/2024 11:08 AM EST No evidence of breast malignancy. BI-RADS CATEGORY: 2 - BENIGN RECOMMENDATION: Screening bilateral mammogram is recommended in 1 year. Mammo Location: [facility], [address] [place] [address], [id number], . -------- FINAL REPORT -------- Dictated By: Alicia Aguila Dictated Date: 07/18/2024 11:05 ET Assigned Physician: Alicia Aguila Reviewed and Electronically Signed By: Alicia Aguila Signed Date: 07/18/2024 11:08 ET Workstation ID: [id number] Transcribed By: Self Edit Transcribed Date: 07/18/2024 11:05 ET Narrative 07/18/2024 11:08 AM EST CLINICAL: 59 years old, Female, routine annual exam. COMPARISON: 10/26/2023, 04/08/2023, 04/03/2022 and 01/30/2021 TECHNIQUE: Bilateral MLO and CC views were obtained digitally with 3-D mammogram (digital breast tomosynthesis). Computer-aided detection was utilized in evaluation of this exam (CAD). FINDINGS: There is no evidence of suspicious mass or architectural distortion. No worrisome calcifications are evident. There has been no significant change from prior exam(s). Stable postreduction mammoplasty changes. BREAST DENSITY: A - The breasts are almost entirely fatty. Procedure Note Alicia Aguila MD - 07/18/2024 CLINICAL: 59 years old, Female, routine annual exam. COMPARISON: 10/26/2023, 04/08/2023, 04/03/2022 and 01/30/2021 TECHNIQUE: Bilateral MLO and CC views were obtained digitally with 3-Dmammogram (digital breast tomosynthesis). Computer-aided detection wasutilized in evaluation of this exam (CAD). FINDINGS: There is no evidence of suspicious mass or architectural distortion. Noworrisome calcifications are evident. There has been no significantchange from prior exam(s). Stable postreduction mammoplasty changes. BREAST DENSITY: A - The breasts are almost entirely fatty. IMPRESSION: No evidence of breast malignancy. BI-RADS CATEGORY: 2 - BENIGN RECOMMENDATION: Screening bilateral mammogram is recommended in 1 year. Mammo Location: [facility], [address] [place] [address], [id number], . -------- FINAL REPORT -------- Dictated By: Alicia Aguila Dictated Date: 07/18/2024 11:05 ET Assigned Physician: Alicia Aguila Reviewed and Electronically Signed By: Alicia Aguila Signed Date: 07/18/2024 11:08 ET Workstation ID: [id number] Transcribed By: Self Edit Transcribed Date: 07/18/2024 11:05 ET us Self Referral Sppl IMG BI PROCEDURES Final Resul t * Pap smear (01/16/2021) 01/16/2021 Narrative HISTORICAL TESTING LAB RESULTING AGENCY - 01/24/2021 2:25 PM EDT [id number] THINPREP PAP, IMAGED: NEGATIVE FOR SQUAMOUS INTRAEPITHELIAL LESION AND MALIGNANCY . BRITTANY KASPER(ASCP) (CASE ELECTRONICALLY SIGNED 01 24 2021) RESULT OF APTIMA HIGH RISK HPV ASSAY: HIGH RISK HPV: NEGATIVE (SEROTYPES 16,18,31,33,35,39,45,51,52,56,58,59,66,68) COMPLETED ON 2021-01-21 ADEQUACY: SATISFACTORY ENDOCERVICAL/TRANSFORMATION ZONE COMPONENT PRESENT. SOURCE: THINPREP PAP HPV ANY DX: REFLEX 16 AND 18, CERVICAL, IMAGED CLINICAL INFORMATION: HPV ANY DIAGNOSIS. POSTMENOPAUSE, PAP HX UNKNOWN [Z12.4, Z01.419] us Amy Rivera CNM LAB CYTOLOGY ORDERABLES Final Result HISTORICAL TESTING LAB RESULTING AGENCY * Annual BMP Blood Test (10/09/2013) Annual BMP Blood Test Abstracted Historical Provider HEALTH MAINTENANCE Final Result * HIV Screening (10/09/2013) Pathologist [facility] HIV Screening Abstracted Historical Provider HEALTH MAINTENANCE Final Result * (ABNORMAL) Lipid panel (10/09/2013) Pathologist [facility] LDL/HDL Ratio 3 0 - 4 Triglycerides 83 0 - 150 mg/dL Cholesterol 211(A) 0 - 200 mg/dL HDL 65 >=40 mg/dL LDL Cholesterol 130(A) 0 - 100 mg/dL Blood Venous blood specimen / Unknown Historical Provider LAB BLOOD ORDERABLES Carmina l Result from Last 3 Months or Most Recently Relevant to Health Maintenance Insurance MEDICAID - [place] MEDICARE Care Teams Assistant Merchandiser Relationship Specialty Start Date End Date Aimee Castañeda PA [address] [place] [address] [facility] - General 06/14/24
--- NOTE | 2025-06-03 20:59 | PC.NURSE ---
Pt with hx of SI with attempt 5 years ago. Denies any SI or risk to self at this time. Pt appropriate with staff.
--- NOTE | 2025-06-03 21:39 | ED.FEMALEGU ---
HPI - Female Genitourinary General Chief complaint: Urogenital-Female Stated complaint: severe back pain Time Seen by Provider: 06/03/25 21:33 Source: patient Mode of arrival: ambulatory Limitations: no limitations History of Present Illness ED Provider: Tolu CARRILLO HPI Narrative: The patient is a 60-year-old female presenting to the ED reporting for the past 2 weeks she has been treated with an antibiotic due to her being recently diagnosed with syphilis. The patient does not know the name of the medication. The patient reports for the past 2 days she has been experiencing multiple symptoms including headache, back pain, bilateral lower quadrant abdominal pain, and itching/burning with the urination. The patient denies associated fever/chills, nausea, vomiting, chest pain, shortness of breath, cough, vaginal lesions, irregular vaginal bleeding, vaginal discharge, or other acute somatic complaint. The patient presents to the ED requesting pain management for her headache and back pain, as well as evaluation of her abdominal pain, patient states she has had similar symptoms with a previous UTIs. Related Data Home Medications ?Medication ?Instructions ?Recorded ?Confirmed ascorbic acid (vitamin C) 250 mg 250 mg PO DAILY 06/03/25 06/03/25 tablet aspirin 81 mg tablet,delayed 81 mg PO DAILY 06/03/25 06/03/25 release atorvastatin 20 mg tablet 20 mg PO BEDTIME 06/03/25 06/03/25 carvedilol 6.25 mg tablet 6.25 mg PO BID 06/03/25 06/03/25 colchicine 0.6 mg tablet 0.6 mg PO Q12H 06/03/25 06/03/25 doxycycline hyclate 100 mg tablet 100 mg PO BID 06/03/25 06/03/25 ferrous sulfate 325 mg (65 mg 325 mg PO QAM 06/03/25 06/03/25 iron) tablet furosemide 20 mg tablet 20 mg PO DAILY 06/03/25 06/03/25 semaglutide (weight loss) 1 mg/0.5 1 mg subcut QWEEK 06/03/25 06/03/25 mL subcutaneous pen injector (Wegovy) sucralfate 1 gram tablet 1 g PO QID 06/03/25 06/03/25 Allergies Allergy/AdvReac Type Severity Reaction Status Date / Time Penicillins (PENICILLINS) Allergy Severe RASH Verified 06/04/25 00:27 Review of Systems Review of Systems: Yes all other systems are reviewed and are negative PMFSH Social History Social History Smoked in Last 30 Days: Yes Use of substances other than those prescribed or required for medical reasons: No Advance Directives: No Advance Directives Information Provided: No Patient : No Physical Exam Vital Signs: Vital Signs: Last Vital Signs Temp 98.0 F 06/03/25 21:48 Pulse 69 06/03/25 21:48 Resp 18 06/03/25 21:48 BP 151/88 H 06/03/25 21:48 Pulse Ox 98 06/03/25 21:48 O2 Del Method Room Air 06/03/25 21:48 BMI result Body Mass Index 32.0 CONSTITUTIONAL: The patient appears non-toxic, well nourished and in no acute distress. Vital signs as documented. HEAD: Atraumatic, normocephalic. EYES: EOMs grossly intact, pupils equal, conjunctiva clear, no exudate. ENT: Nares patent, no discharge. Airway patent, no audible stridor, visible mucosa is pink and moist without noted lesions. NECK: Trachea is midline, no obvious masses or gross abnormalities. CHEST: Symmetric movement, normal appearance. LUNGS: LS present and CTAB, no w/r/r. Non-labored work of breathing. CARDIAC: Regular Rhythm, S1/S2 appreciated, no murmurs, rubs or gallops. ABDOMEN: Abdomen soft x4 quadrants, positive tenderness to palpation of the bilateral lower quadrants and suprapubic region, negative rebound, negative Rovsing's, no palpable masses or organomegaly. Negative CVAT bilaterally. : Deferred. EXTREMITIES: Normal tone, moves all extremities spontaneously without reported pain. No obvious acute injury or deformity noted. NEURO: Alert and oriented x3, CN II-XII appear grossly intact. Cerebellar Functioning grossly intact. No obvious sensory or motor deficits. Speech clear and appropriate. PSYCH: normal affect, appropriate eye contact, fluid speech, with appropriate response to questioning. No reported suicidality or homicidality. SKIN: Warm, dry, color appropriate, normal turgor. No rashes noted. Medications Administered Discontinued Medications Generic Name Dose Route Start Last Admin Trade Name Freq PRN Reason Stop Dose Admin Sodium Chloride 1,000 mls @ 999 mls/hr 06/03/25 22:15 06/04/25 00:27 Ns IV 06/03/25 23:15 Infused .Q1H1M DASHA Infusion Iohexol 85 ml 06/03/25 23:31 06/03/25 23:31 Iohexol 350 Mg/Ml 100 Ml Infus..Btl IV 06/03/25 23:32 85 ml ONCE ONE Administration Ketorolac Tromethamine 15 mg 06/04/25 00:44 06/04/25 00:51 Ketorolac Tromethamine 15 Mg/Ml Vial IVPUSH 06/04/25 00:45 15 mg ONCE ONE Administration Morphine Sulfate 4 mg 06/03/25 22:14 06/03/25 23:11 Morphine Sulfate 4 Mg/Ml Cartridge IVPUSH 06/03/25 22:15 4 mg ONCE ONE Administration Protocol Medical Decision Making Medical Decision Making MDM Narrative: 10:18 PM 06/03/2025 (Angelica CARRILLO): The patient is a 60-year-old female presenting to the ED reporting for the past 2 weeks she has been treated with an antibiotic due to her being recently diagnosed with syphilis. The patient does not know the name of the medication. The patient reports for the past 2 days she has been experiencing multiple symptoms including headache, back pain, bilateral lower quadrant abdominal pain, and itching/burning with the urination. The patient denies associated fever/chills, nausea, vomiting, chest pain, shortness of breath, cough, vaginal lesions, irregular vaginal bleeding, vaginal discharge, or other acute somatic complaint. The patient presents to the ED requesting pain management for her headache and back pain, as well as evaluation of her abdominal pain. On exam the patient has tenderness of the bilateral lower quadrants and suprapubic region, negative CVAT bilaterally. The patient's laboratory evaluation shows no leukocytosis, significant anemia, electrolyte abnormality, or GLORY. The patient's urinalysis shows small leukocyte esterase, otherwise unremarkable, no bacteria, nitrites, or WBCs. The patient will be treated with IV fluid hydration, morphine for pain, and we will obtain CT abdomen and pelvis to evaluate bilateral lower quadrant tenderness. 12:54 AM 06/04/2025 (Angelica CARRILLO): The patient's CT shows moderate stool without bowel obstruction, no bladder thickening, perinephric stranding, or other evidence of UTI, no other acute findings. The uterus and ovaries are unremarkable. Patient reports she is having continued pain. The patient will be treated with Toradol and reassess. Of note med reconciliation was completed by RN after contact with the patient's pharmacy. The patient is being treated with doxycycline for prophylaxis, has approximately 2 days of pills left. The patient reports she has also been noncompliant with her other medications for the past 2 weeks, patient has no explanation for her medication noncompliance. We will reassess the patient's pain following Toradol. 1:59 AM 06/04/2025 (Angelica CARRILLO): Patient's pain has somewhat improved following interventions in the ED. Patient remains hemodynamically stable and in no acute distress. The exact cause of the patient's symptoms is not entirely clear, however there was no evidence of any acute emergent pathology. The patient will be discharged to follow up with PCP and instructed to reinitiate her regularly prescribed medications. Admission/Observation Consideration of admission/observation: Escalation of care including admission/observation considered Lab Data MDM Lab Attestation statement: I reviewed the patient's lab results. 06/03/25 19:26 06/03/25 19:26 Labs: Lab Results 06/03/25 Range/Units 19:26 WBC 7.3 (4.8-10.8) X10*3/uL RBC 3.96 L (4.20-5.50) X10*6/uL Hgb 11.5 L (12.0-16.0) g/dl Hct 35.1 L (37.0-47.0) % MCV 88.6 (80.0-98.0) fL MCH 29.0 (27.0-33.0) pg MCHC 32.8 (31.0-35.0) g/dl RDW 15.1 (11.0-16.0) % Plt Count 231 (160-400) X10*3/uL MPV 10.5 (9.4-12.3) fL Immature Gran % (Auto) 0.1 (0.0-0.4) % Neut % (Auto) 58.9 (45-73) % Lymph % (Auto) 28.1 (20-40) % Anderson % (Auto) 8.6 (2-11) % Eos % (Auto) 3.9 (0-4) % Baso % (Auto) 0.4 (0-2) % Lymph # (Auto) 2.0 (1.2-4.9) X10*3/uL Anderson # (Auto) 0.6 (0.1-1.2) X10*3/uL Eos # (Auto) 0.3 (0.0-0.4) X10*3/uL Baso # (Auto) 0.0 (0.0-0.2) X10*3/uL Abs Immat Gran (auto) 0.01 (0.00-0.03) X10*3/uL Absolute Neuts (auto) 4.3 (2.0-8.3) x10*3/uL Absolute Nucleated RBC 0.000 (0.0-0.012) X10*3/uL Nucleated RBC % (auto) 0.0 (0.0-0.2) /100WBC Sodium 141 (135-145) mmol/L Potassium 3.8 (3.3-5.1) mmol/L Chloride 110 H (96-108) mmol/L Carbon Dioxide 21 L (22-29) mmol/L Anion Gap 14 (12-20) BUN 15 (9-16) mg/dL Creatinine 0.81 (0.5-1.4) mg/dL Estim Creat Clear Calc 72.9 Estimated GFR > 60 Random Glucose 93 (60-115) mg/dL Calcium 8.5 (8.4-10.2) mg/dL Urine Color Yellow Urine Appearance Clear Urine pH 6.5 (5.0-9.0) Ur Specific [place] 1.025 (1.005-1.025) Urine Protein Negative (Neg-Trace) mg/dL Urine Glucose (UA) Negative (Negative) mg/dL Urine Ketones Trace (Negative) mg/dL Urine Blood Negative (Negative) Urine Nitrite Negative (Negative) Ur Leukocyte Esterase Small (1+) H (Negative) Urine RBC 0-2 (0-2) /HPF Urine WBC 0-5 (0-5) /HPF Ur Squamous Epith Cells 0-2 (0-2) /HPF Urine Bacteria None Seen (None Seen) Hyaline Casts 0-2 (0-2) /LPF Radiology Impression Discussion of test interpretation with radiology: I have reviewed the radiologist's reading. Radiologist Impression: CT abdomen and pelvis with contrast Comparison: None provided Findings: Minor atelectasis at the lung bases. Large hiatal hernia. Cholecystectomy. Pneumobilia. Subcapsular 11 mm cyst segment 6 liver. Abdominal solid organs are otherwise unremarkable. No urolithiasis. No bowel obstruction, pneumoperitoneum, or pneumatosis. Moderate stool. Mesenteric vessels patent. Normal appendix. Uterus and ovaries unremarkable. No ascites or hernia. The bones are intact. IMPRESSION: 1. Moderate stool without bowel obstruction. 2. Pneumobilia. Correlate with history of sphincterotomy. 3. Additional findings as above. This document has been electronically signed by: Joelle León MD on 06/04/2025 00:19:42 Discharge Plan Discharge Clinical Impression: Abdominal pain, Headache Patient Disposition: Home, Self-Care Instructions: Abdominal Pain (ED), General Headache (ED) Additional Instructions: Thank you for choosing [facility]'s Emergency Department for your care today. Thankfully your laboratory evaluation, urinalysis, CT, and exam today are all reassuring. There was no evidence of an acute emergent process requiring admission to the hospital or continued ED observation, and it is safe to discharge you home. The exact cause of your symptoms is not entirely clear, however there was no evidence of a urinary tract infection on your urinalysis or CT. Your symptoms may be related to your recent discontinuation of your home medications. We recommend restarting your home medications as directed by your PCP and continuing to take those as directed. Please continue taking doxycycline as directed until finished. You should take alternating (staggered) doses of ibuprofen 600mg and Tylenol 1000mg every 4 hours as needed for any additional pain. Please stay well hydrated and get plenty of rest. Please follow up with your primary care physician for re-evaluation, additional management of your symptoms, and continued preventative care. If you do not have a primary care physician, please call the [facility] at [phone] to establish a new primary care physician. While waiting to establish your new primary care physician, you can call our [facility] at [phone] for non-emergency needs. Please return to the emergency department if you develop a severe or sudden change in your symptoms, a fever over 100.4 that does not improve with Tylenol or Ibuprofen, recurrent vomiting, or any other new or worsening symptoms or concerns. Prescriptions: No Action carvedilol 6.25 mg tablet 6.25 mg PO BID atorvastatin 20 mg tablet 20 mg PO BEDTIME sucralfate 1 gram tablet 1 g PO QID aspirin 81 mg tablet,delayed release (DR/EC) 81 mg PO DAILY ascorbic acid (vitamin C) 250 mg tablet 250 mg PO DAILY ferrous sulfate 325 mg (65 mg iron) tablet 325 mg PO QAM furosemide 20 mg tablet 20 mg PO DAILY colchicine 0.6 mg tablet 0.6 mg PO Q12H doxycycline hyclate 100 mg tablet 100 mg PO BID Wegovy 1 mg/0.5 mL pen injector 1 mg subcut QWEEK Referrals: [facility] [Primary Care Provider, Primary Care] Clinical Impression: Headache; Abdominal pain Print Language: Tajik
[2025-06-03 21:48] VITALS: BP 151/88; PULSE 69; RESP 18; TEMP 36.7; O2SAT 98
--- NOTE | 2025-06-03 22:30 | PC.NURSE ---
Addendum entered by Mouna Castanon RN 06/03/25 23:06: Error in charting PIV attempt x2 not x11. Original Note: PIV placement attempt x11 by this RN and x1 by DECLAN Jacques. Unsuccessful placement. GERARDO Motley aware, plan for US guided placement.
--- NOTE | 2025-06-03 23:07 | PC.NURSE ---
Med rec completed. Pt states she has not been taking home meds for a few weeks because she doesn't know why . Has been taking Doxy, has maybe 5 pills left . GERARDO Motley made aware.
[2025-06-03] MEDS: iohexoL 350 MG/ML 100 ML INFUS..BTL 85 ML IV (23:31)
[2025-06-04 02:36] VITALS: BP 139/80; PULSE 73; RESP 18; TEMP 36.4; O2SAT 97
[2025-06-04 02:37] VITALS: BP 139/80; PULSE 73; RESP 18; TEMP 36.4; O2SAT 97
[2025-06-04 08:07] LABS: Syphilis Screen Nonreactive (Nonreactive)
== END 2025-06-04 02:37 | disposition home or self-care (01) ==
PROVIDERS: Emergency Provider Emergency Medicine; PCP Dentist General Practice
DX: R10.31 Right lower quadrant pain (principal); R10.32 Left lower quadrant pain; R51.9 Headache, unspecified; M54.9 Dorsalgia, unspecified; R30.9 Painful micturition, unspecified
CPT/HCPCS: 36415; 74177; 80048; 81001; 85025; 86780; 87086; 96361; 96374; 96375; 99285; J1885; J2270; Q9967

== ENCOUNTER → 2025-06-03 22:14 | Outpatient (BNV) | payer MEDICARE, MEDICAID, SELFPAY | PROVIDERS: Emergency Provider Emergency Medicine; PCP Dentist General Practice; Visit Provider Radiology Diagnostic Radiology | DX: R10.814 Left lower quadrant abdominal tenderness (principal); R10.32 Left lower quadrant pain; R10.813 Right lower quadrant abdominal tenderness; R10.31 Right lower quadrant pain; K83.8 Other specified diseases of biliary tract | CPT/HCPCS: 74177 ==